=== PATIENT | female | born 1995 | race American Indian/Alaskan Native ===

== ENCOUNTER 2017-08-02 12:14 | Emergency (ER) | payer MEDICAID ==
--- NOTE | 2017-08-02 12:28 | Emergency Department Report ---
Chief Complaint: Abdominal Pain Stated Complaint: 5 MONTHS PREG, STOMACH CRAMPS Time Seen by Provider: 08/02/17 12:23 - HPI History of Present Illness: Patient is a 22-year-old 001 proximately gestational age of 18 weeks with a last menstrual period of 03/01/2017 followed by [facility] [place] [facility] care. Patient and his ear today complaining of cramping type nonradiating lower abdominal pain 2 days. Patient states she has been vomiting about 2 episodes per day and urinary frequency. She denies fevers/chills/vaginal bleeding vaginal discharge, - ROS Review of Systems: As noted in HPI - Exam Vital Signs: Vital Signs 08/02/17 12:19 Temperature 97.7 F Pulse Rate 89 Respiratory 16 Rate Blood Pressure 133/73 O2 Sat by Pulse 100 Oximetry Physical Exam: GENERAL: Alert and oriented x3, no apparent distress, Normal Gait, atraumatic. ABDOMEN: Gravid uterus noted, . Mild tenderness palpation lower quadrant, NO CVA tenderness. BACK: Full range of motion, no spinal tenderness, nontender to palpation. SKIN: Warm and dry, No lesions, No ulceration or induration present. MSE screening note: Focused history and physical exam performed. Due to findings the following was ordered: ED Medical Decision Making - Medical Decision Making 20-year-old female no acute distress Abdominal pain protocol ordered Patient to be seen by ED physician. ED Disposition for MSE Condition: Stable Instructions: Abdominal Pain (ED)
[2017-08-02 12:56] LABS: Basophils % (Auto) 0.2 % (0.0-1.8); Eosinophils % (Auto) 0.2 % (0.0-4.3); Hematocrit 37.3 % (30.3-42.9); Hemoglobin 12.5 gm/dl (10.1-14.3); Mean Corpuscular HGB Conc 34 % (30-34); Mean Corpuscular Hemoglobin 30 pg (28-32); Mean Corpuscular Volume 88 fl (79-97); Platelet Count 290 K/mm3 (140-440); Red Blood Count 4.22 M/mm3 (3.65-5.03); Red Cell Distribution Width 13.5 % (13.2-15.2); White Blood Count 13.8 K/mm3 (4.5-11.0)
[2017-08-02 13:13] LABS: Bacteria,Urine 1+ /HPF (Negative); Bilirubin,Urine NEG (Negative); Blood,Urine NEG (Negative); Ketones,Urine 20 mg/dL (Negative); Leukocyte Esterase,Urine NEG (Negative); Mucus,Urine FEW /HPF; Nitrite,Urine NEG (Negative); Protein,Urine <15 mg/dL mg/dL (Negative); Urobilinogen,Urine < 2.0 mg/dL (<2.0)
[2017-08-02 13:15] LABS: Alanine Aminotransferase 11 units/L (7-56); Albumin 3.6 g/dL (3.9-5); Albumin/Globulin Ratio 1.2 %; Alkaline Phosphatase 75 units/L (35-129); Anion Gap 16 mmol/L; BUN/Creatinine Ratio 13; Blood Urea Nitrogen 4 mg/dL (7-17); Calcium 8.8 mg/dL (8.4-10.2); Carbon Dioxide 26 mmol/L (22-30); Chloride 100.3 mmol/L (98-107); Glucose 102 mg/dL (65-100); Lipase 37 units/L (13-60); Potassium 3.9 mmol/L (3.6-5.0); Sodium 138 mmol/L (137-145); Total Protein 6.7 g/dL (6.3-8.2)
[2017-08-02] MEDS ORDERED: ZOFRAN IV ONE (15:44)
[2017-08-02] MEDS ORDERED: NACL 0.9% 1000 ML 1,000 ML IV ONE (15:44)
[2017-08-02] MEDS ORDERED: TYLENOL PO ONE (16:55)
[2017-08-02 17:46] VITALS: BP 107/52
--- NOTE | 2017-08-02 18:22 | Emergency Department Report ---
ED Abdominal Pain HPI - General Chief Complaint: Abdominal Pain Stated Complaint: 5 MONTHS PREG, STOMACH CRAMPS Time Seen by Provider: 08/02/17 12:23 Source: patient Mode of arrival: Ambulatory Limitations: No Limitations - History of Present Illness Initial Comments: 22-year-old female is currently 18 weeks presents to the hospital complaining of generalized abdominal cramping with nausea vomiting started this morning. 4-5 episodes of vomiting reported. Pain is generalized, intermittent in in cramping and moderate in intensity. Worse with palpation. Patient denies fever, diarrhea, melena, hematochezia, dysuria, or vaginal bleeding. Patient does have a [facility] [employer] [facility] doctor and has received care. Severity scale (0 -10): 6 - Related Data Previous Rx's Medication Instructions Recorded Last Taken Type Ciprofloxacin HCl [Cipro] 500 mg PO Q12H #10 tab 06/27/13 Unknown Rx metroNIDAZOLE [Flagyl] 1 tab PO Q12H #14 tablet 06/27/13 Unknown Rx traMADol [Ultram 50 MG tab] 1 tab PO Q6HR PRN #12 tablet 06/27/13 Unknown Rx Ondansetron [Zofran Odt] 4 mg PO Q8HR PRN #20 tab.rapdis 08/02/17 Unknown Rx Allergies Allergy/AdvReac Type Severity Reaction Status Date / Time No Known Allergies Allergy Unverified 06/27/13 10:27 ED Review of Systems ROS: Stated complaint: 5 MONTHS PREG, STOMACH CRAMPS Other details as noted in HPI Comment: All other systems reviewed and negative Other: Constitutional: No fevers chills Eyes: No eye pain visual changes ENT: No ear pain or throat pain Neck: Denies pain Respiratory: Denies cough wheezing shortness of breath Cardiovascular: Denies chest pain, palpitations, syncope GI: As per HPI : Denies dysuria Musculoskeletal: Pain radiates to the back Skin: Denies rash, lesions, erythema Neurologic: Denies headache, numbness, weakness Psychiatric: Denies suicidal ideation, hallucinations ED Past Medical Hx - Past Medical History Previous Medical History?: No - Surgical History Past Surgical History?: Yes Additional Surgical History: - Social History Smoking Status: Never Smoker Substance Use Type: None - Medications Home Medications: Home Medications Medication Instructions Recorded Confirmed Last Taken Type Ciprofloxacin HCl [Cipro] 500 mg PO Q12H #10 tab 06/27/13 Unknown Rx metroNIDAZOLE [Flagyl] 1 tab PO Q12H #14 tablet 06/27/13 Unknown Rx traMADol [Ultram 50 MG tab] 1 tab PO Q6HR PRN #12 tablet 06/27/13 Unknown Rx Ondansetron [Zofran Odt] 4 mg PO Q8HR PRN #20 tab.rapdis 08/02/17 Unknown Rx ED Physical Exam - General Limitations: No Limitations - Other Other exam information: General: No limitations, patient is alert in no acute distress Head exam: Atraumatic, normocephalic Eyes exam: Normal appearance ENT: Moist mucous membrane, normal oropharynx Neck exam: Normal inspection, full range of motion, no meningismus nontender Respiratory exam: Clear to auscultation bilateral, no wheezes, rales, crackles Cardiovascular: Normal rate and rhythm, normal heart sounds Abdomen: Soft, nondistended, generalized tenderness . with normal bowel sounds, no rebound, or guarding Extremity: Full range of motion normal inspection no deformity Back: Normal Inspection, full range of motion, no tenderness Neurologic: Alert, oriented x3, cranial nerves intact, no motor or sensory deficit Psychiatric: normal affect, normal mood Skin: Warm, dry, intact ED Course Vital Signs 08/02/17 08/02/17 08/02/17 12:19 16:01 16:15 Temperature 97.7 F Pulse Rate 89 Respiratory 16 Rate Blood Pressure 133/73 103/46 Blood Pressure [Left] O2 Sat by Pulse 100 100 99 Oximetry 08/02/17 08/02/17 08/02/17 16:30 16:45 17:00 Temperature Pulse Rate Respiratory Rate Blood Pressure 117/58 108/61 111/61 Blood Pressure [Left] O2 Sat by Pulse 100 100 100 Oximetry 08/02/17 08/02/17 08/02/17 17:15 17:30 17:35 Temperature Pulse Rate Respiratory 18 Rate Blood Pressure 108/52 107/52 Blood Pressure [Left] O2 Sat by Pulse 98 98 Oximetry 08/02/17 08/02/17 17:38 17:43 Temperature 98.5 F Pulse Rate 68 Respiratory 20 20 Rate Blood Pressure Blood Pressure 107/57 [Left] O2 Sat by Pulse 100 100 Oximetry - Reevaluation(s) Reevaluation #1: 08/02/17 18:20 Patient received Zofran and normal saline. Since nausea vomiting had improved patient received by mouth Tylenol. Symptoms improved and patient tolerating by mouth prior to discharge ED Medical Decision Making - Lab Data Result diagrams: 08/02/17 12:43 08/02/17 12:43 Lab Results 08/02/17 08/02/17 08/02/17 Range/Units 12:35 12:43 12:43 WBC 13.8 H (4.5-11.0) K/mm3 RBC 4.22 (3.65-5.03) M/mm3 Hgb 12.5 (10.1-14.3) gm/dl Hct 37.3 (30.3-42.9) % MCV 88 (79-97) fl MCH 30 (28-32) pg MCHC 34 (30-34) % RDW 13.5 (13.2-15.2) % Plt Count 290 (140-440) K/mm3 Lymph % (Auto) 12.9 L (13.4-35.0) % [place] % (Auto) 4.1 (0.0-7.3) % Eos % (Auto) 0.2 (0.0-4.3) % Baso % (Auto) 0.2 (0.0-1.8) % Lymph # 1.8 (1.2-5.4) K/mm3 [place] # 0.6 (0.0-0.8) K/mm3 Eos # 0.0 (0.0-0.4) K/mm3 Baso # 0.0 (0.0-0.1) K/mm3 Seg Neutrophils % 82.6 H (40.0-70.0) % Seg Neutrophils # 11.4 H (1.8-7.7) K/mm3 Sodium 138 (137-145) mmol/L Potassium 3.9 (3.6-5.0) mmol/L Chloride 100.3 (98-107) mmol/L Carbon Dioxide 26 (22-30) mmol/L Anion Gap 16 mmol/L BUN 4 L (7-17) mg/dL Creatinine 0.3 L (0.7-1.2) mg/dL Estimated GFR > 60 ml/min BUN/Creatinine Ratio 13 % Glucose 102 H (65-100) mg/dL Calcium 8.8 (8.4-10.2) mg/dL Total Bilirubin 0.40 (0.1-1.2) mg/dL AST 14 (5-40) units/L ALT 11 (7-56) units/L Alkaline Phosphatase 75 (35-129) units/L Total Protein 6.7 (6.3-8.2) g/dL Albumin 3.6 L (3.9-5) g/dL Albumin/Globulin Ratio 1.2 % Lipase 37 (13-60) units/L HCG, Qual (Negative) Urine Color Yellow (Yellow) Urine Turbidity Clear (Clear) Urine pH 7.0 (5.0-7.0) Ur Specific [place] 1.008 (1.003-1.030) Urine Protein <15 mg/dl (Negative) mg/dL Urine Glucose (UA) Neg (Negative) mg/dL Urine Ketones 20 (Negative) mg/dL Urine Blood Neg (Negative) Urine Nitrite Neg (Negative) Urine Bilirubin Neg (Negative) Urine Urobilinogen < 2.0 (<2.0) mg/dL Ur Leukocyte Esterase Neg (Negative) Urine WBC (Auto) 1.0 (0.0-6.0) /HPF Urine RBC (Auto) 1.0 (0.0-6.0) /HPF U Epithel Cells (Auto) 4.0 (0-13.0) /HPF Urine Bacteria (Auto) 1+ (Negative) /HPF Urine Mucus Few /HPF 08/02/17 Range/Units 12:43 WBC (4.5-11.0) K/mm3 RBC (3.65-5.03) M/mm3 Hgb (10.1-14.3) gm/dl Hct (30.3-42.9) % MCV (79-97) fl MCH (28-32) pg MCHC (30-34) % RDW (13.2-15.2) % Plt Count (140-440) K/mm3 Lymph % (Auto) (13.4-35.0) % [place] % (Auto) (0.0-7.3) % Eos % (Auto) (0.0-4.3) % Baso % (Auto) (0.0-1.8) % Lymph # (1.2-5.4) K/mm3 [place] # (0.0-0.8) K/mm3 Eos # (0.0-0.4) K/mm3 Baso # (0.0-0.1) K/mm3 Seg Neutrophils % (40.0-70.0) % Seg Neutrophils # (1.8-7.7) K/mm3 Sodium (137-145) mmol/L Potassium (3.6-5.0) mmol/L Chloride (98-107) mmol/L Carbon Dioxide (22-30) mmol/L Anion Gap mmol/L BUN (7-17) mg/dL Creatinine (0.7-1.2) mg/dL Estimated GFR ml/min BUN/Creatinine Ratio % Glucose (65-100) mg/dL Calcium (8.4-10.2) mg/dL Total Bilirubin (0.1-1.2) mg/dL AST (5-40) units/L ALT (7-56) units/L Alkaline Phosphatase (35-129) units/L Total Protein (6.3-8.2) g/dL Albumin (3.9-5) g/dL Albumin/Globulin Ratio % Lipase (13-60) units/L HCG, Qual Positive (Negative) Urine Color (Yellow) Urine Turbidity (Clear) Urine pH (5.0-7.0) Ur Specific [place] (1.003-1.030) Urine Protein (Negative) mg/dL Urine Glucose (UA) (Negative) mg/dL Urine Ketones (Negative) mg/dL Urine Blood (Negative) Urine Nitrite (Negative) Urine Bilirubin (Negative) Urine Urobilinogen (<2.0) mg/dL Ur Leukocyte Esterase (Negative) Urine WBC (Auto) (0.0-6.0) /HPF Urine RBC (Auto) (0.0-6.0) /HPF U Epithel Cells (Auto) (0-13.0) /HPF Urine Bacteria (Auto) (Negative) /HPF Urine Mucus /HPF - Medical Decision Making Patient's pain is generalized and not localized. No course of fever. UA negative. Little is unremarkable. We'll treat symptomatically for stomach virus Tylenol as needed for pain. - Differential Diagnosis UTI, gastritis, gastroenteritis, biliary colic, appendicitis Critical Care Time: No Critical care attestation.: If time is entered above; I have spent that time in minutes in the direct care of this critically ill patient, excluding procedure time. ED Disposition Clinical Impression: Vomiting, Disposition: DC-01 TO HOME OR SELFCARE Is pt being admited?: No Does the pt Need Aspirin: No Condition: Stable Instructions: Acute Nausea and Vomiting (ED), (ED) Additional Instructions: Take Tylenol as needed for pain. Taken nausea medication as needed. Follow-up with your [facility] doctor. Please return if symptoms worsen as indicated by her discharge instructions. 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
== END 2017-08-02 18:54 | disposition home or self-care (01) ==
LOC: ED 12:14
DX: O21.9 Vomiting of pregnancy, unspecified (principal); Z3A.18 18 weeks gestation of pregnancy
CPT/HCPCS: 36415; 80053; 81001; 83690; 84703; 85025; 96361; 96374; 99283; J2405; J7030